=== PATIENT | female | born 1990 | race Caucasian/White ===

== ENCOUNTER 2017-07-28 09:54 | Inpatient (IN) | payer OTHER ==
[2017-07-28] MEDS ORDERED: Promethazine HCl 25 MG/ML VIAL IM PRN ×3 (10:42→17:20)
[2017-07-28] MEDS ORDERED: CEFAZOLIN/Water 2 GM/20 ML SYRINGE SLOW IVP SCH (10:42)
[2017-07-28] MEDS ORDERED: Bicitra 30 ML UDCUP PO SCH (10:42)
[2017-07-28] MEDS ORDERED: Ondansetron HCl/PF 4 MG/2 ML Vial IVP PRN ×4 (10:42→17:20)
[2017-07-28] MEDS: Lactated Ringer's 1,000 ML IV SCH (10:45)
[2017-07-28] MEDS ORDERED: ePHEDrine/0.9% NaCl/PF SYRINGE 50 mg/10 ml ONE ×2 (10:58→14:32)
[2017-07-28] MEDS ORDERED: Oxytocin 10 UNITS/ML VIAL ONE (10:58)
[2017-07-28 11:05] VITALS: BMI 34.3
--- NOTE | 2017-07-28 11:23 | PDOC.LDHP ---
Labor and Delivery H&P Chief complaint: scheduled section HPI: 27yo A1 at 34w5d by 15w sono with mia vs monodi TIUP for repeat CS and RRS. Baby B is growth restricted in 6%ile and Baby A's growth is lagging as well but not IUGR. BPPs have been reassuring but patient is high risk for complications based on maternal hyperthyroidism and CHTN. Good FM. Denies ctx. s/p BMZ x 2 in my office. 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 ) - Physical Exam Vital signs reviewed and normal: yes General: NAD Heart: RRR Lungs: CTAB Abdomen: gravid Extremeties: no edema FHT: category 1 (x2) - OB Labs Blood type: A RH: positive Antibody Screen: negative HIV: negative RPR: negative HEPSAg: negative 1 hour GCT: positive 3 hour GTT: negative GBS: unknown Urine drug screen: negative Rubella: immune - Assessment L&D Assessment: scheduled repeat section - Plan Plan: admit to L&D, to OR for section, informed consent obtained, anesthesia consult for pain management -: 34w5d with twins, unclear if mo-di vs mia based on early sonos and IUGR of Baby B with maternal hyperthyroid and CHTN. Dispo for repeat CS due to continued decrease in growth velocity of baby B, possibility of mo-di placentation, will send to pathology and maternal comorbidities. s/p BMZ x 2
[2017-07-28 11:32] LABS: Hemoglobin 11.4 g/dL (12.0-16.0); Mean Corpuscular HGB CONC 34.1 g/dL (32.0-36.0); Mean Corpuscular Hemoglobin 29.1 pg (27.0-31.0); Mean Corpuscular Volume 85.5 fl (81.0-99.0); Mean Platelet Volume 7.9 fL (7.4-10.4); Platelet Count 214 thou/uL (130-400); RBC Distribution Width 12.7 % (11.5-14.5); Red Blood Cell (RBC) Count 3.91 mill/uL (4.20-5.40); White Blood Cell (WBC) Count 8.5 thou/uL (4.8-10.8)
[2017-07-28 12:08] LABS: ALT (SGPT) 34 U/L (8-55); AST (SGOT) 22 U/L (5-34); Albumin 3.3 g/dL (3.5-5.0); Alkaline Phosphatase 115 U/L (40-150); Anion Gap 13 mmol/L (10-20); BUN (Urea Nitrogen) 8 mg/dL (7.0-18.7); Bilirubin, Total 0.2 mg/dL (0.2-1.2); Calc. Creatinine Clearance 213 mL/min (70-130); Carbon Dioxide 19 mmol/L (22-29); Chloride 110 mmol/L (98-107); Estimated GFR-MDRD Greater than 90; Globulin 2.6 g/dL (2.4-3.5); Glucose 90 mg/dL (70-105); Potassium 3.8 mmol/L (3.5-5.1); Protein, Total 5.9 g/dL (6.0-8.3); Sodium 138 mmol/L (136-145)
[2017-07-28 12:09] LABS: Amphetamine Not Detected (NotDetected); Barbiturates Screen Not Detected (NotDetected); Benzodiazepine Screen Not Detected (NotDetected); Cocaine Metabolite Screen Not Detected (NotDetected); Medtox Control Line Valid? VALID (VALID); Medtox Reader # READER 4; Methadone Not Detected (NotDetected); Methamphetamine Not Detected (NotDetected); Opiate Screen Not Detected (NotDetected); Oxycodone Screen Not Detected (NotDetected); Phencyclidine (PCP) Not Detected (NotDetected); THC/Cannabinoid Screen Not Detected (NotDetected); Tricyclic Screen Not Detected (NotDetected)
[2017-07-28 12:17] LABS: Syphilis Antibody Nonreactive (Nonreactive); Syphilis Antibody Index 0.03 S/CO (<1.00 Non-Reactive)
[2017-07-28 12:18] LABS: HBSAg Index 0.17 S/CO (0-0.99); Hep B Surf Ag Non-Reactive S/CO (NonReactive)
[2017-07-28] MEDS ORDERED: PHENYLEPHRINE-NS 100 MCG/ML 10 ML SYRINGE ONE ×2 (12:30→14:32)
[2017-07-28] MEDS ORDERED: HYDROmorphone 2 MG/ML VIAL SLOW IVP PRN (13:03)
--- NOTE | 2017-07-28 13:19 | PDOC.OPDEL ---
OB Operative/Delivery Note Delivery Dr/Surgeon: Gabriella Assist: Evette Pre-Delivery Diagnosis: scheduled section (mono di twins, 34w5d, IUGR, discordant growth, maternal CHTN and hyperthyroidism, desires sterilization) Procedure/Post Delivery Dx: repeat low transverse CS (and risk reducing salpingectomy) Weeks gestation: 34 Anesthesia: spinal - Findings A Sex: male B Sex: male - Additional Findings/Plan Placenta delivered: spontaneous findings: low transverse hysterotomy without extension, normal uterus, normal tubes, normal ovaries Estimated blood loss: 1000 Post delivery plan: routine recovery
[2017-07-28] MEDS ORDERED: Meperidine HCl/PF 25 MG/ML VIAL ONE ×2 (13:46→14:42)
[2017-07-28] MEDS: Meperidine HCl/PF 25 MG/ML VIAL SLOW IVP PRN ×2 (13:47→14:43)
[2017-07-28] MEDS ORDERED: HYDROmorphone 0.5 MG/0.5 ML SYRINGE SLOW IVP PRN (15:45)
[2017-07-28] MEDS ORDERED: Acetaminophen 325 MG TAB PO PRN (16:36)
[2017-07-28] MEDS ORDERED: diphenhydrAMINE 25 MG CAP PO PRN ×2 (16:36→17:20)
[2017-07-28] MEDS ORDERED: Bisacodyl 10 MG SUPP PR PRN (16:36)
[2017-07-28] MEDS ORDERED: Zolpidem Tartrate 5 MG TAB PO PRN ×2 (16:36→17:20)
[2017-07-28] MEDS ORDERED: HYDROcodone/Acetaminophen 5/325 mg Tablet PO PRN ×2 (16:36)
[2017-07-28] MEDS ORDERED: Lanolin Ointment 7 GM TUBE TOP PRN (16:36)
[2017-07-28] MEDS ORDERED: diphenhydrAMINE 50 MG/ML VIAL IM PRN (17:20)
[2017-07-28] MEDS ORDERED: diphenhydrAMINE 50 MG/ML VIAL IVP PRN (17:20)
[2017-07-28] MEDS ORDERED: Fentanyl 5000 MCG/250 ML CADD IVPB PRN (17:20)
[2017-07-28] MEDS ORDERED: Naloxone HCl 0.4 mg/ml Vial IV PRN (17:20)
[2017-07-28] MEDS ORDERED: Communication Order-Pharmacy FS SCH (17:30)
[2017-07-28] MEDS ORDERED: LR / Pitocin 40 units/1000 ml 1,000 ML ONE (17:42)
[2017-07-28] MEDS ORDERED: fentaNYL Citrate/PF 2,000 MCG in Sodium Chloride 0.9% 60 ML IV PRN (17:45)
[2017-07-28] MEDS: Propylthiouracil 50 MG TAB PO SCH (21:46)
[2017-07-28] MEDS: Docusate Calcium (SURFAK) 240 MG CAP PO SCH (21:46)
[2017-07-29] MEDS: Lactated Ringer's 1,000 ML IV SCH (02:27)
[2017-07-29 06:08] LABS: Hemoglobin 10.3 g/dL (12.0-16.0); Mean Corpuscular HGB CONC 33.6 g/dL (32.0-36.0); Mean Corpuscular Hemoglobin 28.9 pg (27.0-31.0); Mean Platelet Volume 7.3 fL (7.4-10.4); Platelet Count 163 thou/uL (130-400); RBC Distribution Width 12.6 % (11.5-14.5); Red Blood Cell (RBC) Count 3.55 mill/uL (4.20-5.40); White Blood Cell (WBC) Count 8.4 thou/uL (4.8-10.8)
--- NOTE | 2017-07-29 07:26 | PDOC.PP ---
Post Progress Note Post Day #: 1 PO intake tolerated: yes Flatus: yes Ambulation: no Vital Signs (12 hours) Temp Pulse Resp BP Pulse Ox 07/29/17 04:30 98.4 F 79 22 H 141/75 H 97 07/28/17 22:50 98.3 F 77 20 135/70 96 07/28/17 21:45 98.7 F 71 20 121/69 96 07/28/17 20:45 99.0 F 80 20 118/70 98 07/28/17 19:30 98.3 F 78 20 154/75 H 96 Weight Weight 194 lb - Physical Examination General: NAD Cardiovascular: RRR Respiratory: non-labored breathing Abdominal: no distention, appropriately TTP Fundus firm & at: umb Skin: CS incision dry & intact Neurological: no gross focal deficits Psychiatric: normal affect Result Diagrams: 07/29/17 05:53 07/28/17 10:45 Additional Labs: Post Labs Blood Type A POSITIVE 07/28/17 10:45 Hep Bs Antigen Non-Reactive S/CO (NonReactive) 07/28/17 10:45 (1) Twin , monochorionic diamniotic in third trimester Code(s): O30.033 - TWIN , MONOCHORIONIC/DIAMNIOTIC, THIRD TRIMESTER Status: Acute (2) 34 weeks gestation of Code(s): Z3A.34 - 34 WEEKS GESTATION OF Status: Acute (3) Intrauterine growth restriction affecting antepartum care of mother in third trimester Code(s): O36.5930 - MATERN CARE FOR OTH OR SUSP POOR FETL GRTH, THIRD TRI, UNSP Status: Acute Qualifiers: Fetus number: fetus 1 of multiple gestation Qualified Code(s): O36.5931 - Maternal care for other known or suspected poor growth, third trimester, fetus 1 - Assessment/Plan POD 1 from RCS and RRS at 34w due to mo/di TIUP, IUGR VSSAF, BP mild range, has hx of CHTN, no sx PIH. 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
[2017-07-29] MEDS: Ferrous Sulfate 325 MG TAB PO SCH ×2 (08:22→18:01)
[2017-07-29] MEDS: Propylthiouracil 50 MG TAB PO SCH ×2 (08:23→21:46)
[2017-07-29] MEDS: Docusate Calcium (SURFAK) 240 MG CAP PO SCH ×2 (08:23→21:45)
[2017-07-29] MEDS: Naproxen 500 MG TAB PO SCH ×2 (08:23→18:57)
[2017-07-29] MEDS: Prenatal Vitamin 1 TAB PO SCH (08:23)
[2017-07-29] MEDS: Simethicone Chewable 80 MG TAB PO PRN ×2 (08:24→15:59)
[2017-07-29] MEDS ORDERED: FLU VACC QS2017-18 36 mo. & older 0.5 ML SYRINGE IM ONE (09:00)
[2017-07-29 09:17] LABS: Free T4 (Free Thyroxine) 1.83 ng/dL (0.70-1.48); Thyroid Stimulating Hormone 0.0094 uIU/mL (0.35-4.94)
[2017-07-29] MEDS ORDERED: HYDROcodone/Acetaminophen 7.5/325 mg Tablet PO PRN (11:27)
[2017-07-29] MEDS: HYDROcodone/Acetaminophen 7.5/325 mg Tablet PO PRN ×3 (11:34→20:01)
[2017-07-30] MEDS: HYDROcodone/Acetaminophen 7.5/325 mg Tablet PO PRN (06:50)
--- NOTE | 2017-07-30 08:57 | PDOC.EVN ---
Event Note - Event Note Event Note: S: Pt doing well overall but less than adequate pain control. Hives with NSAIDs. Voiding, flatus, nl lochia, breast feeding. O: Vital Signs (24 hours) Temp Pulse Resp BP Pulse Ox 07/30/17 08:38 97.9 F 82 20 144/65 H 07/30/17 08:25 97.9 F 66 18 07/30/17 07:18 97.9 F 66 18 147/72 H 07/30/17 06:30 98.3 F 79 18 07/30/17 01:15 97.8 F 64 14 120/64 07/29/17 19:45 98.3 F 79 18 119/56 L 96 07/29/17 17:00 98.3 F 77 20 143/71 H 07/29/17 15:55 98.4 F 85 20 07/29/17 12:00 98.4 F 85 20 141/81 H 07/29/17 11:35 98.4 F 85 20 Laboratory Last Values WBC 8.4 thou/uL (4.8-10.8) 07/29/17 05:53 RBC 3.55 mill/uL (4.20-5.40) L 07/29/17 05:53 Hgb 10.3 g/dL (12.0-16.0) L 07/29/17 05:53 Hct 30.5 % (36.0-47.0) L 07/29/17 05:53 MCV 86.0 fl (81.0-99.0) 07/29/17 05:53 MCH 28.9 pg (27.0-31.0) 07/29/17 05:53 MCHC 33.6 g/dL (32.0-36.0) 07/29/17 05:53 RDW 12.6 % (11.5-14.5) 07/29/17 05:53 Plt Count 163 thou/uL (130-400) 07/29/17 05:53 MPV 7.3 fL (7.4-10.4) L 07/29/17 05:53 Sodium 138 mmol/L (136-145) 07/28/17 10:45 Potassium 3.8 mmol/L (3.5-5.1) 07/28/17 10:45 Chloride 110 mmol/L (98-107) H 07/28/17 10:45 Carbon Dioxide 19 mmol/L (22-29) L 07/28/17 10:45 Anion Gap 13 mmol/L (10-20) 07/28/17 10:45 BUN 8 mg/dL (7.0-18.7) 07/28/17 10:45 Creatinine 0.55 mg/dL (0.6-1.1) L 07/28/17 10:45 Estimated GFR (MDRD) Greater than 90 07/28/17 10:45 Glucose 90 mg/dL (70-105) 07/28/17 10:45 Calcium 9.0 mg/dL (7.8-10.44) 07/28/17 10:45 Total Bilirubin 0.2 mg/dL (0.2-1.2) 07/28/17 10:45 AST 22 U/L (5-34) 07/28/17 10:45 ALT 34 U/L (8-55) 07/28/17 10:45 Alkaline Phosphatase 115 U/L (40-150) 07/28/17 10:45 Serum Total Protein 5.9 g/dL (6.0-8.3) L 07/28/17 10:45 Albumin 3.3 g/dL (3.5-5.0) L 07/28/17 10:45 Globulin 2.6 g/dL (2.4-3.5) 07/28/17 10:45 Albumin/Globulin Ratio 1.3 g/dL (1.2-2.2) 07/28/17 10:45 Free T4 1.83 ng/dL (0.70-1.48) H 07/29/17 10:45 TSH 3rd Generation 0.0094 uIU/mL (0.35-4.94) L 07/29/17 10:45 Urine Opiates Screen Not Detected (NotDetected) 07/28/17 11:15 Ur Oxycodone Screen Not Detected (NotDetected) 07/28/17 11:15 Urine Methadone Screen Not Detected (NotDetected) 07/28/17 11:15 Ur Propoxyphene Screen Not Detected (NotDetected) 07/28/17 11:15 Ur Barbiturates Screen Not Detected (NotDetected) 07/28/17 11:15 Ur Tricyclics Screen Not Detected (NotDetected) 07/28/17 11:15 Ur Phencyclidine Scrn Not Detected (NotDetected) 07/28/17 11:15 Ur Amphetamines Screen Not Detected (NotDetected) 07/28/17 11:15 U Methamphetamines Scrn Not Detected (NotDetected) 07/28/17 11:15 U Benzodiazepines Scrn Not Detected (NotDetected) 07/28/17 11:15 U Cocaine Metab Screen Not Detected (NotDetected) 07/28/17 11:15 U Cannabinoids Screen Not Detected (NotDetected) 07/28/17 11:15 Drug Screen Comment () 07/28/17 11:15 Syphilis IgG/IgM Ab Nonreactive (Nonreactive) 07/28/17 10:45 Hep Bs Antigen Non-Reactive S/CO (NonReactive) 07/28/17 10:45 Blood Type A POSITIVE 07/28/17 10:45 Antibody Screen NEGATIVE 07/28/17 10:45 Gen. NAD Resp. unlabored . fundus firm below U. Abd. Inc C/D/I with dermabond A/P: POD #2 s/p CD for twins with IUGR c/b hyperthyroid on PTU, doing well. Rouitne PoP care. Adjust [place] dosing. Mild range BPs noted will follow
[2017-07-30] MEDS: Naproxen 500 MG TAB PO SCH ×2 (09:27→17:23)
[2017-07-30] MEDS: Propylthiouracil 50 MG TAB PO SCH ×2 (09:27→20:22)
[2017-07-30] MEDS: Prenatal Vitamin 1 TAB PO SCH (09:27)
[2017-07-30] MEDS: Docusate Calcium (SURFAK) 240 MG CAP PO SCH ×2 (09:27→20:22)
[2017-07-30] MEDS: Ferrous Sulfate 325 MG TAB PO SCH ×2 (10:10→13:17)
[2017-07-30] MEDS: HYDROcodone/Acetaminophen 10/325 mg Tablet PO PRN ×4 (10:24→22:29)
[2017-07-31] MEDS: HYDROcodone/Acetaminophen 10/325 mg Tablet PO PRN ×5 (03:20→19:51)
[2017-07-31] MEDS: Naproxen 500 MG TAB PO SCH ×2 (07:25→18:29)
[2017-07-31] MEDS: Ferrous Sulfate 325 MG TAB PO SCH ×2 (07:26→17:43)
--- NOTE | 2017-07-31 07:36 | PDOC.PP ---
Post Progress Note Post Day #: 3 PO intake tolerated: yes Flatus: yes Ambulation: yes Vital Signs (12 hours) Temp Pulse Resp 07/30/17 20:00 98.3 F 73 20 Weight Weight 194 lb - Physical Examination General: NAD Cardiovascular: no m/r/g, RRR Respiratory: clear to auscultation bilaterally, non-labored breathing Abdominal: + bowel sounds, lochia, appropriately TTP Extremities: negative homans (B) Skin: CS incision dry & intact Neurological: no gross focal deficits Psychiatric: A&Ox3, normal affect Result Diagrams: 07/29/17 05:53 07/28/17 10:45 Additional Labs: Post Labs Blood Type A POSITIVE 07/28/17 10:45 Hep Bs Antigen Non-Reactive S/CO (NonReactive) 07/28/17 10:45 (1) Twin , monochorionic diamniotic in third trimester Code(s): O30.033 - TWIN , MONOCHORIONIC/DIAMNIOTIC, THIRD TRIMESTER Status: Acute - Assessment/Plan continues to improve. htn not requiring meds at this time. plan dc tomorrow
[2017-07-31] MEDS: Propylthiouracil 50 MG TAB PO SCH ×2 (10:18→19:51)
[2017-07-31] MEDS: Docusate Calcium (SURFAK) 240 MG CAP PO SCH ×2 (10:18→19:50)
[2017-07-31] MEDS: Prenatal Vitamin 1 TAB PO SCH (10:18)
[2017-08-01] MEDS: HYDROcodone/Acetaminophen 10/325 mg Tablet PO PRN ×5 (00:54→17:54)
[2017-08-01] MEDS: Prenatal Vitamin 1 TAB PO SCH (08:14)
[2017-08-01] MEDS: Ferrous Sulfate 325 MG TAB PO SCH ×2 (08:14→17:53)
[2017-08-01] MEDS: Docusate Calcium (SURFAK) 240 MG CAP PO SCH (08:15)
[2017-08-01] MEDS: Propylthiouracil 50 MG TAB PO SCH (08:15)
[2017-08-01] MEDS: Naproxen 500 MG TAB PO SCH (08:15)
--- NOTE | 2017-08-01 08:37 | OP ---
DATE OF OPERATION: 07/28/2017 PREOPERATIVE DIAGNOSES: 1. Horry-di twins intrauterine at 34 weeks and 5 days. 3. Intrauterine growth restriction. 4. Discordant growth. 5. Maternal hyperthyroidism. 6. Chronic hypertension. 7. Sterilization. POSTOPERATIVE DIAGNOSES: 1. Horry-di twins intrauterine at 34 weeks and 5 days. 3. Intrauterine growth restriction. 4. Discordant growth. 5. Maternal hyperthyroidism. 6. Chronic hypertension. 7. Sterilization. PROCEDURES PERFORMED: Repeat low transverse section via Pfannenstiel skin incision and risk reducing bilateral salpingectomy. ATTENDING SURGEON: Fani Quiroz M.D. LABORATORY SAMPLER SURGEON: Judy Alas D.O. ANESTHESIA: Spinal. ESTIMATED BLOOD LOSS: 1 liter. INTRAVENOUS FLUIDS: One liter crystalloid. URINE OUTPUT: 100 mL of clear urine. COMPLICATIONS: None. PATHOLOGY: Placenta and bilateral fallopian tube. DRAINS: Ortiz catheter. FINDINGS: Baby A in cephalic presentation with clear amniotic fluid, Apgars of 8 and 9, weighing 4 p ounds, 5 ounces. Baby B in transverse presentation, head on maternal left, delivered in breech posit ion, weighing 4 pounds 9 ounces with Apgars of 6 and 9. Uterus, tubes, and ovaries were normal appea ring. The hysterotomy was without extension and hemostatic upon repair. OPERATIVE TECHNIQUE: The patient was taken to the operating room where spinal anesthesia was obtaine d without difficulty. The patient was prepped and draped in a sterile fashion in the dorsal supine p osition with a leftward tilt. After ensuring adequacy of anesthesia, a timeout was performed and a P fannenstiel skin incision was made and carried down to the underlying subcutaneous tissue with the Rj víctore. This cauterizing bleeders on the way down. The fascia was nicked in the midline with the Bovie and carried laterally with the Mayos. The superior aspect of the fascia was tented with 2 Kochers a nd dissected off the rectus with the Hodges scissors. The inferior aspect of the fascia was tented wit h 2 Kochers and dissected off the rectus with the Mayos down to the pubic symphysis. The rectus were grasped in the midline with 2 Kochers and incised with the Hodges scissors and the peritoneum was ente red into and manually retracted. The Luke O retractor was placed and the lower uterine segment was incised in a transverse fashion and extended with the Lester maneuver. Baby A's head was brought to t he hysterotomy. AROM was performed and delivered atraumatically. A delayed cord clamping was perfor med and the cord was clamped and handed to awaiting teri team. The baby B was then grasped lan ech and brought to the hysterotomy. AROM was performed and was delivered with standard breech maneuv ers without difficulty. A delayed cord clamping was again performed and then the cord was clamped an d infant handed to awaiting teri team. The placenta was then allowed to spontaneously deliver with fu ndal massage and sent for pathology evaluation, it did appear mono-di. The uterus was then cleared o f all clots and debris and the hysterotomy was repaired with a #1 Monocryl in running locking fashion . Hemostasis was noted to be excellent. A moist lap was then placed over the hysterotomy and the ut erus was delivered through the incision and the left fallopian tube was grasped with a Moro clamp. A window was made in the mesosalpinx and cauterizing the arcuate vessels. The distal point of the fallopian tube was then clamped with two hemostats and incised and a free tie of chromic was placed a round this. The medial portion of the fallopian tube was clamped across and then transected and sent for pathology. This was also tied with a free tie of 2-0 chromic. Clamps were removed. Hemostasis was noted to be excellent. The same procedure was performed on the contralateral side and the uteru s was then gently placed back into the abdomen after the posterior cul-de-sac was lapped out. The hy sterotomy was again examined and noted to be hemostatic and the fallopian tube sites were also again examined and noted to be hemostatic. Irrigation of the pelvis and pericolic gutters was performed. The rectus muscles were then examined and cauterized of any bleeders and hemostatic. The fascia was reapproximated with an 0 PDS x2 sutures with excellent reapproximation. The subcutaneous tissue was irrigated and cauterized of any bleeders and reapproximated with a 2-0 plain gut in a running fashion . The skin was closed with 4-0 Monocryl in a subcuticular fashion and Dermabond was applied. The pa tient tolerated the procedure well. Sponge, lap, and needle counts were correct x2. The patient was taken to recovery room in stable condition. Patient received Ancef 2 grams prior to the procedure.
[2017-08-01 10:36] VITALS: TEMP 97.8
--- NOTE | 2017-08-01 10:38 | PDOC.PP ---
Post Progress Note Post Day #: 4 Subjective: pain controlled on norco q 4h and aleve bid. no WOODRUFF vision change RUQ pain PO intake tolerated: yes Flatus: yes Ambulation: yes Vital Signs (12 hours) Temp Pulse Resp BP 08/01/17 08:05 97.8 F 61 20 162/83 H Weight Weight 194 lb - Physical Examination General: NAD Cardiovascular: RRR Respiratory: clear to auscultation bilaterally, non-labored breathing Abdominal: no distention, appropriately TTP Fundus firm & at: umb Extremities: negative homans (B) (tr RABIA edema bilaterally) Skin: CS incision dry & intact Neurological: no gross focal deficits Psychiatric: normal affect Result Diagrams: 07/29/17 05:53 07/28/17 10:45 Additional Labs: Post Labs Blood Type A POSITIVE 07/28/17 10:45 Hep Bs Antigen Non-Reactive S/CO (NonReactive) 07/28/17 10:45 (1) Twin , monochorionic diamniotic in third trimester Code(s): O30.033 - TWIN , MONOCHORIONIC/DIAMNIOTIC, THIRD TRIMESTER Status: Acute (2) 34 weeks gestation of Code(s): Z3A.34 - 34 WEEKS GESTATION OF Status: Acute (3) Intrauterine growth restriction affecting antepartum care of mother in third trimester Code(s): O36.5930 - MATERN CARE FOR OTH OR SUSP POOR FETL GRTH, THIRD TRI, UNSP Status: Acute Qualifiers: Fetus number: fetus 1 of multiple gestation Qualified Code(s): O36.5931 - Maternal care for other known or suspected poor growth, third trimester, fetus 1 - Assessment/Plan BP elevated today, will start on procardia xl 30 daily, recheck pih labs, no sx PIH. Met postop milestones, pain controlled bu taking 2 norco every 4h. Adv pt to decr use of narcotic. Incr naproxyen to tid. Babies in NICU doing well. Cont postop care, poss DC today if BP improved and no e/o PIH.
[2017-08-01] MEDS: Simethicone Chewable 80 MG TAB PO PRN (13:02)
[2017-08-01] MEDS ORDERED: NIFEdipine XL 30 MG TAB PO SCH (13:08)
[2017-08-01 13:28] LABS: #Eosinphils 0.1 thou/uL (0.0-0.7); #Lymphocytes 1.1 thou/uL (1.20-3.40); #Monocytes 0.4 thou/uL (0.11-0.59); #Neutrophils 3.6 thou/uL (1.40-6.50); %Basophils 0.2 % (0.0-1.0); %Eosinophils 2.6 % (0.0-10.0); %Lymphocytes 21.4 % (21.0-51.0); %Neutrophils 68.9 % (42.0-75.0); Hemoglobin 10.3 g/dL (12.0-16.0); Mean Corpuscular HGB CONC 33.3 g/dL (32.0-36.0); Mean Corpuscular Hemoglobin 29.2 pg (27.0-31.0); Mean Corpuscular Volume 87.7 fl (81.0-99.0); Mean Platelet Volume 6.7 fL (7.4-10.4); Platelet Count 244 thou/uL (130-400); RBC Distribution Width 12.4 % (11.5-14.5); Red Blood Cell (RBC) Count 3.53 mill/uL (4.20-5.40); White Blood Cell (WBC) Count 5.3 thou/uL (4.8-10.8)
[2017-08-01 13:48] LABS: ALT (SGPT) 21 U/L (8-55); AST (SGOT) 15 U/L (5-34); Albumin 2.9 g/dL (3.5-5.0); Alkaline Phosphatase 95 U/L (40-150); Anion Gap 12 mmol/L (10-20); BUN (Urea Nitrogen) 16 mg/dL (7.0-18.7); Bilirubin, Total 0.2 mg/dL (0.2-1.2); Calc. Creatinine Clearance 202 mL/min (70-130); Calcium 9.3 mg/dL (7.8-10.44); Carbon Dioxide 27 mmol/L (22-29); Chloride 103 mmol/L (98-107); Estimated GFR-MDRD Greater than 90; Globulin 2.8 g/dL (2.4-3.5); Glucose 86 mg/dL (70-105); Potassium 4.5 mmol/L (3.5-5.1); Protein, Total 5.7 g/dL (6.0-8.3); Sodium 137 mmol/L (136-145)
[2017-08-01] MEDS ORDERED: Naproxen 500 MG TAB PO SCH (15:00)
[2017-08-01] MEDS ORDERED: Propylthiouracil 50 MG TAB PO SCH (15:00)
[2017-08-01 20:09] VITALS: BP 154/74
[2017-08-02] MEDS ORDERED: NIFEdipine XL 30 MG TAB PO SCH (09:00)
== END 2017-08-01 20:10 | disposition home or self-care (01) | DRG 765 ==
LOC: L&D 09:54 → EEVIPCON 09:54 → 3SW 15:48
PROVIDERS: ADMIT Student in an Organized Health Care Education/Training Program; ATTEND Student in an Organized Health Care Education/Training Program
PROC: 10D00Z1 Extraction of Products of Conception, Low, Open Approach (ICD-10-PCS; principal; 2017-07-28)
PROC: 0UB70ZZ Excision of Bilateral Fallopian Tubes, Open Approach (ICD-10-PCS; 2017-07-28)
DX: O36.5932 Maternal care for other known or suspected poor fetal growth, third trimester, fetus 2 (principal); O10.92 Unspecified pre-existing hypertension complicating childbirth; Z37.2 Twins, both liveborn; O30.033 Twin pregnancy, monochorionic/diamniotic, third trimester; O99.284 Endocrine, nutritional and metabolic diseases complicating childbirth; Z3A.34 34 weeks gestation of pregnancy; E05.90 Thyrotoxicosis, unspecified without thyrotoxic crisis or storm; Z30.2 Encounter for sterilization; Z80.3 Family history of malignant neoplasm of breast; Z80.41 Family history of malignant neoplasm of ovary
CPT/HCPCS: 36415; 51702; 80053; 80306; 84439; 84443; 85025; 85027; 86780; 86850; 86900; 86901; 87340; 88302; 88307; 90471; 90682; G0008; J1170; J2175; J2590; J3010; J7050; Q2036

== ENCOUNTER 2017-08-06 06:08 | Inpatient (IN) | payer OTHER ==
[2017-08-06] MEDS ORDERED: diphenhydrAMINE 50 MG/ML VIAL ONE (06:50)
[2017-08-06] MEDS ORDERED: Metoclopramide HCl 10 MG/2 ML VIAL ONE ×5 (06:50→18:49)
[2017-08-06] MEDS ORDERED: diphenhydrAMINE 50 MG CAP ONE (07:03)
[2017-08-06] MEDS ORDERED: Acetaminophen 500 MG TAB ONE (08:24)
[2017-08-06] MEDS ORDERED: Magnesium Sulfate 2 GM/100 ML BAG ONE (08:25)
[2017-08-06 08:55] LABS: #Lymphocytes 1.1 thou/uL (1.20-3.40); #Monocytes 0.3 thou/uL (0.11-0.59); #Neutrophils 7.2 thou/uL (1.40-6.50); %Basophils 0.3 % (0.0-1.0); %Eosinophils 0.1 % (0.0-10.0); %Lymphocytes 12.8 % (21.0-51.0); %Monocytes 3.2 % (0.0-10.0); %Neutrophils 83.6 % (42.0-75.0); Hemoglobin 11.5 g/dL (12.0-16.0); Mean Corpuscular HGB CONC 33.4 g/dL (32.0-36.0); Mean Corpuscular Hemoglobin 28.2 pg (27.0-31.0); Mean Corpuscular Volume 84.4 fl (81.0-99.0); Mean Platelet Volume 7.2 fL (7.4-10.4); Platelet Count 307 thou/uL (130-400); RBC Distribution Width 11.8 % (11.5-14.5); Red Blood Cell (RBC) Count 4.09 mill/uL (4.20-5.40); White Blood Cell (WBC) Count 8.6 thou/uL (4.8-10.8)
[2017-08-06 09:06] LABS: Anion Gap 13 mmol/L (10-20); BUN (Urea Nitrogen) 9 mg/dL (7.0-18.7); Calc. Creatinine Clearance 0 mL/min (70-130); Calcium 8.7 mg/dL (7.8-10.44); Carbon Dioxide 22 mmol/L (22-29); Chloride 109 mmol/L (98-107); Estimated GFR-MDRD Greater than 90; Glucose 103 mg/dL (70-105); Potassium 3.7 mmol/L (3.5-5.1); Sodium 140 mmol/L (136-145)
--- NOTE | 2017-08-06 09:06 | CT ---
PRELIMINARY REPORT/[facility]/EMERGENCY AFTER HOURS PROCEDURE: EXAM: CT Head Without Intravenous Contrast CLINICAL HISTORY: 27 years old, female; Pain; Headache; Patient HX: Patient presents C/O diffuse headache x 3 days. Rony abrams admits to HX of migraines, states this feels similar in quality but worse. Admits to phonophobi a and photophobia, denies head trauma, anticoagulant use. Admits to recent delivery of twins, no know n HX of pre-ecclampsia. Denies fever, neck pain or stiffness, sore throat, Uri symptoms. TECHNIQUE: Axial computed tomography images of the head/brain without intravenous contrast. COMPARISON: No relevant prior studies available. FINDINGS: Normal brain morphology. Brown-white matter differentiation is preserved. No intracranial hemorrhage. No mass, mass effect or midline shift. No extra-axial fluid collection. No acute hydrocephalus. Cortical sulci and basal cisterns are preserved without effacement. Crowding at the level foramen magnum. Orbits are unremarkable. Paranasal sinuses are clear. Mastoid air cells are clear. No acute fracture. Extra calvarial soft tissues unremarkable. IMPRESSION: 1. No acute intracranial abnormality. 2. Crowding at the level of the foramen magnum. Differential includes cerebellar tonsillar ectopia ve rsus Chiari 1 malformation. Follow-up or further evaluation for this finding at local radiologist's d iscretion. Thank you for allowing us to participate in the care of your patient. Dictated and Authenticated by: Celestine Pastrana MD 08/06/2017 7:14 AM Central Time ([place] & [place]) FINAL REPORT EMERGENT AFTER HOURS CT OF THE BRAIN WITHOUT CONTRAST: FINDINGS/IMPRESSION: I agree with the findings and impression given in the preliminary report per [facility] physician. No evidence of acute intracranial abnormality. POS: [facility]
[2017-08-06] MEDS ORDERED: Dexamethasone 10 MG/ML VIAL ONE (10:07)
[2017-08-06] MEDS ORDERED: Labetalol HCl 100 MG/20 ML VIAL ONE (10:07)
[2017-08-06 10:26] LABS: ALT (SGPT) 18 U/L (8-55); AST (SGOT) 11 U/L (5-34); Albumin 3.2 g/dL (3.5-5.0); Alkaline Phosphatase 94 U/L (40-150); Bilirubin, Direct 0.1 mg/dL (0.1-0.3); Bilirubin, Total 0.3 mg/dL (0.2-1.2); Protein, Total 5.9 g/dL (6.0-8.3)
[2017-08-06 10:46] LABS: Bilirubin Negative (Negative); Blood, Urine Large (Negative); Clarity CLEAR (Clear); Glucose, Urine (Dipstick) Negative (Negative); Leukocyte Negative (Negative); Nitrite Negative (Negative); Protein, Urine (Dipstick) 100 mg/dL (Neg-Trace); Specific Gravity, Urine 1.013 (1.002-1.036); pH, Urine 6.5 (5.0-9.0)
[2017-08-06 10:48] LABS: Bacteria/HPF None Seen HPF (None Seen); Hyaline Casts/LPF 0-3 HYALINE CAST LPF (0-3 Hyaline); Pathc Cast-AUWi Flag 0.13 (0-2.49); Squamous Epithelial 0-3 HPF (0-3); WBC/HPF 0-3 HPF (0-3)
[2017-08-06] MEDS ORDERED: Valproate Sodium 1,000 MG in Sodium Chloride 0.9% 100 ML IVPB SCH (11:15)
[2017-08-06] MEDS ORDERED: Calcium Gluc 4.6 MEQ/10 ML (100 MG/ML) SLOW IVP PRN (11:48)
[2017-08-06] MEDS ORDERED: NIFEdipine XL 30 MG TAB PO SCH (12:15)
[2017-08-06] MEDS: Magnesium Sulfate 20 GM/WATER 500 ML BAG IVPB SCH ×3 (13:00→21:16)
[2017-08-06 13:57] LABS: Bilirubin Negative (Negative); Blood, Urine Trace (Negative); Clarity CLEAR (Clear); Glucose, Urine (Dipstick) Negative (Negative); Leukocyte Negative (Negative); Nitrite Negative (Negative); Protein, Urine (Dipstick) 300 mg/dL (Neg-Trace); Specific Gravity, Urine 1.015 (1.002-1.036); pH, Urine 6.5 (5.0-9.0)
[2017-08-06 13:59] LABS: Bacteria/HPF None Seen HPF (None Seen); Hyaline Casts/LPF 0-3 HYALINE CAST LPF (0-3 Hyaline); Squamous Epithelial None Seen HPF (0-3); WBC/HPF 0-3 HPF (0-3)
[2017-08-06 14:23] LABS: Creatinine, Urine 37.6 mg/dL (47-110)
[2017-08-06] MEDS ORDERED: Propylthiouracil 50 MG TAB PO SCH (15:00)
[2017-08-06] MEDS: HYDROcodone/Acetaminophen 5/325 mg Tablet PO PRN ×2 (15:05→16:51)
[2017-08-06] MEDS: Metoclopramide HCl 10 MG/2 ML VIAL IVP PRN ×3 (16:52→19:10)
[2017-08-06] MEDS: diphenhydrAMINE 50 MG/ML VIAL IVP PRN ×2 (16:52→18:04)
--- NOTE | 2017-08-06 18:26 | PDOC.EVN ---
Event Note - Event Note Event Note: Called By Rn for temp of 101, although pt says her WOODRUFF has partially resolved REpeat CBC, CMP ordered as well as Influenza screen, blood cultures, and lactic acid
[2017-08-06 18:57] LABS: #Lymphocytes 1.3 thou/uL (1.20-3.40); #Monocytes 0.3 thou/uL (0.11-0.59); #Neutrophils 5.4 thou/uL (1.40-6.50); %Basophils 0.2 % (0.0-1.0); %Lymphocytes 18.4 % (21.0-51.0); %Monocytes 4.5 % (0.0-10.0); Hemoglobin 11.3 g/dL (12.0-16.0); Mean Corpuscular HGB CONC 32.3 g/dL (32.0-36.0); Mean Corpuscular Hemoglobin 27.4 pg (27.0-31.0); Mean Corpuscular Volume 84.6 fl (81.0-99.0); Mean Platelet Volume 6.9 fL (7.4-10.4); Platelet Count 323 thou/uL (130-400); RBC Distribution Width 11.7 % (11.5-14.5); Red Blood Cell (RBC) Count 4.11 mill/uL (4.20-5.40)
[2017-08-06 19:24] LABS: ALT (SGPT) 15 U/L (8-55); AST (SGOT) 11 U/L (5-34); Albumin 3.1 g/dL (3.5-5.0); Alkaline Phosphatase 89 U/L (40-150); Anion Gap 12 mmol/L (10-20); BUN (Urea Nitrogen) 10 mg/dL (7.0-18.7); Bilirubin, Total 0.2 mg/dL (0.2-1.2); Calc. Creatinine Clearance 0 mL/min (70-130); Carbon Dioxide 22 mmol/L (22-29); Chloride 107 mmol/L (98-107); Estimated GFR-MDRD Greater than 90; Globulin 2.5 g/dL (2.4-3.5); Glucose 128 mg/dL (70-105); Potassium 3.7 mmol/L (3.5-5.1); Protein, Total 5.6 g/dL (6.0-8.3); Sodium 137 mmol/L (136-145)
[2017-08-06] MEDS ORDERED: Fioricet 325/50/40 mg Tablet PO SCH (20:45)
[2017-08-06] MEDS ORDERED: Magnesium Sulfate 20 gm/500 ml 20 GM/500 ML BAG ONE (21:05)
[2017-08-06] MEDS: Propylthiouracil 50 MG TAB PO SCH (21:21)
[2017-08-06 21:28] VITALS: BMI 26.6
[2017-08-07] MEDS ORDERED: Magnesium Sulfate 20 gm/500 ml 20 GM/500 ML BAG ONE (07:23)
[2017-08-07] MEDS ORDERED: Fioricet 325/50/40 mg Tablet PO PRN (07:49)
--- NOTE | 2017-08-07 08:27 | PDOC.EVN ---
Event Note - Event Note Event Note: S: Pt states WOODRUFF completely resolved with fioricet but now it has returned. She still denies cough, myalgias, other complaints O: 130-150/60-70's AVSS Gen. NAD. more comfortable than yesterday Resp unlabored Laboratory Last Values WBC 7.0 thou/uL (4.8-10.8) 08/06/17 18:43 RBC 4.11 mill/uL (4.20-5.40) L 08/06/17 18:43 Hgb 11.3 g/dL (12.0-16.0) L 08/06/17 18:43 Hct 34.8 % (36.0-47.0) L 08/06/17 18:43 MCV 84.6 fl (81.0-99.0) 08/06/17 18:43 MCH 27.4 pg (27.0-31.0) 08/06/17 18:43 MCHC 32.3 g/dL (32.0-36.0) 08/06/17 18:43 RDW 11.7 % (11.5-14.5) 08/06/17 18:43 Plt Count 323 thou/uL (130-400) 08/06/17 18:43 MPV 6.9 fL (7.4-10.4) L 08/06/17 18:43 Neutrophils % 77.0 % (42.0-75.0) H 08/06/17 18:43 Lymphocytes % 18.4 % (21.0-51.0) L 08/06/17 18:43 Monocytes % 4.5 % (0.0-10.0) 08/06/17 18:43 Eosinophils % 0.0 % (0.0-10.0) 08/06/17 18:43 Basophils % 0.2 % (0.0-1.0) 08/06/17 18:43 Neutrophils # 5.4 thou/uL (1.40-6.50) 08/06/17 18:43 Lymphocytes # 1.3 thou/uL (1.20-3.40) 08/06/17 18:43 Monocytes # 0.3 thou/uL (0.11-0.59) 08/06/17 18:43 Eosinophils # 0.0 thou/uL (0.0-0.7) 08/06/17 18:43 Basophils # 0.0 thou/uL (0.0-0.2) 08/06/17 18:43 Sodium 137 mmol/L (136-145) 08/06/17 18:43 Potassium 3.7 mmol/L (3.5-5.1) 08/06/17 18:43 Chloride 107 mmol/L (98-107) 08/06/17 18:43 Carbon Dioxide 22 mmol/L (22-29) 08/06/17 18:43 Anion Gap 12 mmol/L (10-20) 08/06/17 18:43 BUN 10 mg/dL (7.0-18.7) 08/06/17 18:43 Creatinine 0.55 mg/dL (0.6-1.1) L 08/06/17 18:43 Estimated GFR (MDRD) Greater than 90 08/06/17 18:43 Glucose 128 mg/dL (70-105) H 08/06/17 18:43 Lactic Acid 0.7 mmol/L (0.5-2.2) 08/06/17 18:43 Calcium 8.0 mg/dL (7.8-10.44) 08/06/17 18:43 Total Bilirubin 0.2 mg/dL (0.2-1.2) 08/06/17 18:43 Direct Bilirubin 0.1 mg/dL (0.1-0.3) 08/06/17 08:37 AST 11 U/L (5-34) 08/06/17 18:43 ALT 15 U/L (8-55) 08/06/17 18:43 Alkaline Phosphatase 89 U/L (40-150) 08/06/17 18:43 Serum Total Protein 5.6 g/dL (6.0-8.3) L 08/06/17 18:43 Albumin 3.1 g/dL (3.5-5.0) L 08/06/17 18:43 Globulin 2.5 g/dL (2.4-3.5) 08/06/17 18:43 Albumin/Globulin Ratio 1.2 g/dL (1.2-2.2) 08/06/17 18:43 TSH 3rd Generation 0.0027 uIU/mL (0.35-4.94) L 08/06/17 08:37 Urine Color YELLOW (Yellow) 08/06/17 13:05 Urine Clarity CLEAR (Clear) 08/06/17 13:05 Urine pH 6.5 (5.0-9.0) 08/06/17 13:05 Ur Specific [place] 1.015 (1.002-1.036) 08/06/17 13:05 Urine Protein 300 mg/dL (Neg-Trace) H 08/06/17 13:05 Urine Glucose (UA) Negative mg/dL (Negative) 08/06/17 13:05 Urine Ketones Trace mg/dL (Negative) H 08/06/17 13:05 Urine Blood Trace (Negative) H 08/06/17 13:05 Urine Nitrite Negative (Negative) 08/06/17 13:05 Urine Bilirubin Negative (Negative) 08/06/17 13:05 Urine Urobilinogen 1.0 mg/dL (0.2-1.0) 08/06/17 13:05 Ur Leukocyte Esterase Negative (Negative) 08/06/17 13:05 Urine RBC 4-6 HPF (0-3) 08/06/17 13:05 Urine WBC 0-3 HPF (0-3) 08/06/17 13:05 Ur Squamous Epith Cells None Seen HPF (0-3) 08/06/17 13:05 Urine Bacteria None Seen HPF (None Seen) 08/06/17 13:05 Hyaline Casts 0-3 HYALINE CAST LPF (0-3 Hyaline) 08/06/17 13:05 U Random Total Protein 311 mg/dL 08/06/17 13:05 Urine Creatinine 37.60 mg/dL (47-110) L 08/06/17 13:05 A/P: * s/p CD 07/28/17 * readmission for severe range BPs and severe WOODRUFF * magnesium * fioricet for WOODRUFF's although if they cont to be severe may consider consulting Neuro. No acute changes noted on CT but possible Chiari Malformation Type I noted, please see report * Procardia XL 30mg daily ordered - pt was not taking prior to admission because she said her insurnace did not cover * Hyperthyroidism * pt was only taking PTU 50mg qd although tid was prescribed according to her DC summary. SHe was placed on 50mg TID. Will need f/u labs in 1-2 months * Twins in NICU * self limited episode of fever, no leukocytosis, normal lactic acid, negative flu PCR. Blood cultures pending * Social. May consider SW consult. Pt has been staying in [facility] even though she [place] in [facility], unable to get/take meds raises concern for resources
[2017-08-07] MEDS: Propylthiouracil 50 MG TAB PO SCH ×3 (09:00→21:37)
[2017-08-07] MEDS: NIFEdipine XL 30 MG TAB PO SCH (10:00)
[2017-08-07] MEDS: Mag-Al 1200 mg/1200 mg/30 ML UDCUP PO PRN ×2 (11:56→16:40)
[2017-08-07] MEDS ORDERED: Magnesium Sulfate 20 gm/500 ml 20 GM/500 ML BAG IVPB SCH (13:00)
[2017-08-07] MEDS: Labetalol HCl 100 MG/20 ML VIAL SLOW IVP PRN ×2 (13:20→17:13)
--- NOTE | 2017-08-07 15:50 | HP ---
DATE OF SERVICE: 08/06/2017 CHIEF COMPLAINT: Postoperative on 07/28/2017 with severe headache. HISTORY OF PRESENT ILLNESS: At the time of presentation in the emergency department, Ms. Nicki Ann is a 27-year-old white female who is status post delivery of twins for IUGR on 07/28/2017. The patient sees Dr. Quiroz for care. Apparently, the patient has a history of migraines prior to , but they were not a problem during the . The patient also states that she did not have any problems with her blood pressure during the , but did have some problems after the delivery. She states that regarding the headache, she took some Excedrin Migraine at approximately 0300, the day of presentation with no relief from the headache. The patient states that she has blurry vision as well. Headache and blurry vision has been going on for the last 3 days. She denies any gestational diabetes or any other -related complications. The patient denies any fever or chills. She reports some sweats however. She denies any cardiovascular or respiratory complaints. She denies any right upper quadrant pain or vomiting. She is and has normal lochia. Of note, she has been staying in the [facility] to be in close proximity to her twins being born at 34 weeks and still in the NICU. PAST MEDICAL HISTORY: Migraines, hyperthyroidism, depression. PAST SURGICAL HISTORY: section x3. OBSTETRIC HISTORY: The patient is a 5, para 3, AB 2 with living now 4. MEDICATIONS: 1. PTU 50 mg daily. 2. Zoloft. ALLERGIES: 1. IBUPROFEN. 2. TRAMADOL. 3. MORPHINE, all cause hives. Of note, patient is able to tolerate Pelham without difficulty. PHYSICAL EXAMINATION: VITAL SIGNS: In the emergency department, blood pressure has been 140s-180s/60s -90s, pulse 77, respiratory rate 16, temperature 99.7. GENERAL: Nontoxic appearing female in moderate amount of distress with her face covered by a shirt and a light cloth in the room. HEENT: Normocephalic, atraumatic. LUNGS: Clear to auscultation. CARDIOVASCULAR: Regular rate and rhythm. ABDOMEN: Soft, nontender, nondistended, no rebound, no guarding. Incision from the is healing well with Dermabond. No erythema or areas of fluctuance. LABORATORY DATA AND STUDIES: White blood cell count 8.6, hematocrit 34.5, platelets 305. Sodium and potassium are 140 and 3.7, creatinine 0.52. AST and ALT are 11 and 8 respectively. Urinalysis is contaminated by blood and will be repeated. ASSESSMENT AND PLAN: 1. Postop section on 07/28/2017 for intrauterine growth restriction twins at 34 weeks. 2. Severe headache and hypertension. Given the patient's history of twins of intrauterine growth restriction, suspect preeclampsia. The patient's discharge summary from her admission was reviewed and apparently she was discharged home on Procardia-XL 30 mg daily. The patient has not been taking this, because she says her insurance did not cover it. We will repeat the patient's urinalysis with a catheter specimen to do a protein creatinine ratio, but given her severe range pressures and headache, we will admit for magnesium and management of the headache. We will also start the patient on her Procardia -XL 30 mg p.o. daily. Of note, a CT scan of the head was ordered by the emergency room physician with no evidence of acute intracranial abnormality, but there was some crowding at the level of the foramen magnum with differential diagnoses including cerebellar tonsillar ectopia versus Chiari malformation. Follow up for further evaluation was suggested. We will order a neurology consultation if indicated 3. Hyperthyroidism, upon reviewing the patient's discharge summary, she was actually supposed to be taking the 50 mcg of PTU 3 times a day and has only been taking it one time a day. We will place the patient on the appropriate dose. MTDD
[2017-08-07] MEDS ORDERED: Sodium Chloride 0.9% 20 ML ONE ×2 (21:28→22:20)
[2017-08-07] MEDS: Famotidine 20 MG TAB PO SCH (21:36)
[2017-08-07] MEDS: hydrALAZINE 20 MG/ML VIAL SLOW IVP PRN ×2 (21:37→22:24)
[2017-08-07] MEDS: HYDROcodone/Acetaminophen 10/325 mg Tablet PO PRN (21:49)
[2017-08-07] MEDS: Zolpidem Tartrate 5 MG TAB PO PRN (23:23)
[2017-08-08] MEDS: HYDROcodone/Acetaminophen 10/325 mg Tablet PO PRN ×3 (03:20→12:10)
[2017-08-08] MEDS: Famotidine 20 MG TAB PO SCH ×2 (08:08→21:09)
[2017-08-08] MEDS: NIFEdipine XL 30 MG TAB PO SCH (08:09)
[2017-08-08] MEDS: Propylthiouracil 50 MG TAB PO SCH ×3 (08:10→21:10)
[2017-08-08] MEDS ORDERED: Amlodipine 5 MG TAB PO SCH (10:30)
--- NOTE | 2017-08-08 11:21 | PDOC.PP ---
Post Progress Note Post Day #: 11 Subjective: continues to have WOODRUFF, slightly improved since last night, last night couldn't sleep until 3am due to WOODRUFF and BP was elevated. Given IV labetalol and hydralazine last night and po procardia xl this am. PO intake tolerated: yes Flatus: yes Ambulation: yes Vital Signs (12 hours) Temp Pulse Resp BP BP BP BP 08/08/17 10:30 56 L 154/68 H 08/08/17 08:09 52 L 153/70 H 08/08/17 08:00 98.7 F 52 L 18 153/70 H 08/08/17 03:15 98.7 F 60 16 158/68 H 08/08/17 01:10 60 152/60 H 08/07/17 23:34 98.0 F 52 L 16 Weight Weight 159 lb 15.831 oz - Physical Examination General: NAD Cardiovascular: RRR Respiratory: clear to auscultation bilaterally, non-labored breathing Abdominal: no distention, appropriately TTP Extremities: negative homans (B) Skin: CS incision dry & intact Neurological: no gross focal deficits Psychiatric: normal affect Result Diagrams: 08/06/17 18:43 08/06/17 18:43 (1) Preeclampsia in period Code(s): O14.95 - UNSPECIFIED PRE-ECLAMPSIA, COMPLICATING THE PUERPERIUM Status: Acute - Assessment/Plan POD 11 readmit with PEC. s/p Mag course. Now with severely elevated BPs and WOODRUFF. Will change procardia to norvasc as pt could not afford procardia on DC and that is why she did not take meds. Will continue monitoring sx, treating WOODRUFF and ensuring BP comes down. Instructed patient that she will need PTU three times daily on DC and feel her undertreated hyperthyroidism is also contributing to her sx and BPs. Cont inpatient care.
[2017-08-08] MEDS: HYDROcodone/Acetaminophen 5/325 mg Tablet PO PRN (16:09)
[2017-08-08] MEDS: Zolpidem Tartrate 5 MG TAB PO PRN (21:15)
--- NOTE | 2017-08-09 08:21 | PDOC.PP ---
Post Progress Note Post Day #: 12 Subjective: WOODRUFF resolved, postop pain minimal. Having pain around IV site. PO intake tolerated: yes Flatus: yes Ambulation: yes Vital Signs (12 hours) Temp Pulse Resp BP 08/09/17 01:30 98.4 F 65 18 146/68 H 08/08/17 21:00 98.3 F 65 18 146/75 H Weight Weight 159 lb 15.831 oz - Physical Examination General: NAD Cardiovascular: RRR Respiratory: non-labored breathing Abdominal: no distention, appropriately TTP Extremities: negative homans (B) Skin: CS incision dry & intact Neurological: no gross focal deficits Psychiatric: normal affect Result Diagrams: 08/06/17 18:43 08/06/17 18:43 (1) Preeclampsia in period Code(s): O14.95 - UNSPECIFIED PRE-ECLAMPSIA, COMPLICATING THE PUERPERIUM Status: Acute - Assessment/Plan BP improved on norvasc 5mg. WOODRUFF improved s/p Mag for PP PEC. If BP remains mild and pt asx will plan DC later today. Will ensure that pt will be able to apple picker meds prior to DC. Has fu sched 08/11. IV site infiltrated, now indurated erythematous and warm, will start on keflex.
[2017-08-09 09:00] VITALS: TEMP 98.9
[2017-08-09] MEDS ORDERED: Amlodipine 5 MG TAB PO SCH (09:00)
[2017-08-09] MEDS: Famotidine 20 MG TAB PO SCH (09:08)
[2017-08-09] MEDS: Propylthiouracil 50 MG TAB PO SCH (09:09)
[2017-08-09] MEDS: HYDROcodone/Acetaminophen 5/325 mg Tablet PO PRN (11:22)
[2017-08-09] MEDS ORDERED: Cephalexin 250 MG CAP PO SCH (12:00)
[2017-08-09 12:05] VITALS: BP 154/75
== END 2017-08-09 13:15 | disposition home or self-care (01) | DRG 776 ==
LOC: ERS 06:08 → L&D 11:52 → 3SW 08-07 20:24
PROVIDERS: ADMIT Obstetrics & Gynecology Obstetrics; ATTEND Obstetrics & Gynecology Obstetrics
DX: O14.95 Unspecified pre-eclampsia, complicating the puerperium (principal); E05.90 Thyrotoxicosis, unspecified without thyrotoxic crisis or storm; O99.285 Endocrine, nutritional and metabolic diseases complicating the puerperium; Z88.6 Allergy status to analgesic agent; Z88.5 Allergy status to narcotic agent; F17.211 Nicotine dependence, cigarettes, in remission
CPT/HCPCS: 36415; 70450; 80048; 80076; 81003; 81015; 82570; 83605; 84156; 84443; 85025; 87040; 87086; 87631; 96361; 96365; 96367; 96375; A4216; J0360; J1100; J1200; J2765; J3475; J7050

== ENCOUNTER 2017-08-31 08:20 | Inpatient (IN) | payer OTHER ==
[2017-08-30 14:01] VITALS: BMI 28.3
[2017-08-31] MEDS ORDERED: Midazolam HCl 2 mg/2 ml Vial ONE ×2 (09:29)
[2017-08-31] MEDS ORDERED: Fentanyl 100 MCG/2 ML VIAL ONE ×3 (09:29→13:17)
[2017-08-31] MEDS ORDERED: Lidocaine 1% w/Epinephrine 1:200K 30 ML VIAL ONE (09:35)
[2017-08-31 09:36] LABS: BHCG - Serum Negative (NEGATIVE); Pregs Control Background? CLEAR/WHITE (CLR/WHITE); Pregs Control Bar Appear? YES (CONTROL BAR)
[2017-08-31] MEDS ORDERED: HYDROcodone/Acetaminophen 5/325 mg Tablet PO PRN (12:20)
[2017-08-31] MEDS ORDERED: Ondansetron HCl/PF 4 MG/2 ML Vial IVP PRN (12:20)
[2017-08-31] MEDS ORDERED: HYDROmorphone 0.5 MG/0.5 ML SYRINGE ONE ×2 (12:39→12:51)
[2017-08-31] MEDS ORDERED: Promethazine HCl 25 MG/ML VIAL ONE (13:17)
[2017-08-31] MEDS: Sodium Chloride 0.45% 1,000 ML IV SCH ×2 (14:16→21:46)
[2017-08-31] MEDS: Calcium Carbonate 500 MG TAB PO SCH ×2 (14:20→21:36)
[2017-08-31] MEDS: HYDROcodone/Acetaminophen 5/325 mg Tablet PO PRN ×3 (14:24→21:43)
[2017-08-31] MEDS ORDERED: Ondansetron HCl/PF 4 MG/2 ML Vial ONE (15:53)
[2017-08-31] MEDS ORDERED: PHENYLEPHRINE-NS 100 MCG/ML 10 ML SYRINGE ONE (15:53)
[2017-08-31] MEDS ORDERED: Labetalol 100 MG/20 ML MDV ONE (15:53)
[2017-08-31] MEDS ORDERED: Lidocaine 1% PF 5 ML VIAL ONE (15:53)
[2017-08-31] MEDS ORDERED: Dexamethasone 20 MG/5 ML VIAL ONE (15:53)
[2017-08-31] MEDS ORDERED: Succinylcholine Chloride 20 MG/ML 10 ml SYRINGE FS ONE (15:53)
[2017-08-31] MEDS ORDERED: Propofol 200 MG/20 ML VIAL ONE (15:53)
[2017-08-31] MEDS: Propylthiouracil 50 MG TAB PO SCH (21:37)
[2017-09-01] MEDS: HYDROcodone/Acetaminophen 5/325 mg Tablet PO PRN ×5 (03:02→22:10)
[2017-09-01] MEDS: Calcitriol 0.25 MCG CAP PO SCH (08:50)
[2017-09-01] MEDS: Propylthiouracil 50 MG TAB PO SCH ×2 (08:52→20:04)
[2017-09-01] MEDS: Calcium Carbonate 500 MG TAB PO SCH ×3 (08:52→20:04)
[2017-09-01] MEDS: Sodium Chloride 0.45% 1,000 ML IV SCH ×2 (10:08→19:12)
[2017-09-01] MEDS ORDERED: Calcium Gluconate 9.2 MEQ in Sodium Chloride 0.9% 100 ML IVPB SCH ×2 (14:30→18:00)
--- NOTE | 2017-09-01 17:30 | OP ---
PREOPERATIVE DIAGNOSES: 1. Thyroid mass. 2. Hyperthyroidism. POSTOPERATIVE DIAGNOSES: 1. Thyroid mass. 2. Hyperthyroidism. PROCEDURE PERFORMED: Total thyroidectomy with intraoperative laryngeal nerve monitor. SURGEON: Germán Stein M.D. ESTIMATED BLOOD LOSS: 20 mL COMPLICATIONS: None. ANESTHESIA: GETA with laryngeal nerve monitor. DESCRIPTION OF PROCEDURE: The patient was taken to the operating room and placed supine on the table . General endotracheal anesthesia was obtained by the Anesthesia staff. The laryngeal monitor was c onfirmed to be between the vocal cords with direct visualization, a shoulder roll was placed and then the tube was secured to the midline of the upper lip. Following this, the patient was prepped and d raped in a standard surgical fashion. A 1% lidocaine with 1:100,000 epinephrine was injected into th e area overlying the thyroid mass. The incision was made using a 15 blade through the skin and subcu taneous tissues and the platysmal layer. Subplatysmal flaps were elevated superiorly to the level of the thyroid notch and inferiorly to the thyroid notch. Following this, the strap muscles were ident ified and in the midline where a large thyroid mass encompassing the entire thyroid was enc ountered, staying immediately adjacent to the capsule of the thyroid. Dissection was carried down th e capsule and the gland was retracted laterally. The superior pole vessels were suture ligated immed iately adjacent to the thyroid gland bilaterally. Following this, the recurrent laryngeal nerves wer e identified bilaterally run in the tracheoesophageal groove, there were protected as the inferior th yroid artery was suture ligated. The superior and inferior parathyroid glands were identified and we re from this thyroid tissue. The decision to confirm from a subtotal thyroidectomy to a to adalberto thyroidectomy was made when realized that the entire gland was enlarged. Also, the residual port ions of the gland that would have been left had multiple nodules located within them. They were not identified on previous ultrasound. Following this, the gland was freed from its attachments to the t rachea and Ugarte's ligaments were suture ligated. The gland was then removed from the body in its en tirety. The wound was irrigated. Hemostasis was controlled. A small piece of Surgicel was placed o dudley the recurrent laryngeal nerve as it into the cricothyroid joint bilaterally. A DERRELL drain was plac ed and the wound was closed using Monocryl stitches and Dermabond for the skin. The patient tolerate d the procedure well.
[2017-09-01] MEDS ORDERED: Calcium Gluconate 9.2 MEQ in Sodium Chloride 0.9% 100 ML IVPB PRN (17:35)
[2017-09-02] MEDS: HYDROcodone/Acetaminophen 5/325 mg Tablet PO PRN ×4 (02:21→13:38)
[2017-09-02] MEDS: Sodium Chloride 0.45% 1,000 ML IV SCH ×2 (03:00→09:40)
[2017-09-02] MEDS: Propylthiouracil 50 MG TAB PO SCH (09:32)
[2017-09-02] MEDS: Calcitriol 0.25 MCG CAP PO SCH (09:32)
[2017-09-02] MEDS: Calcium Carbonate 500 MG TAB PO SCH ×2 (09:32→15:06)
[2017-09-02] MEDS ORDERED: CALCIUM GLUCONATE IVPB SCH ×2 (10:00→13:00)
[2017-09-02] MEDS ORDERED: SODIUM CHLORIDE 0.9% IVPB SCH ×2 (10:00→13:00)
[2017-09-02] MEDS ORDERED: MAGNESIUM SULFATE IVPB SCH ×2 (10:00→13:00)
[2017-09-02 12:13] VITALS: BP 129/80; TEMP 98.8
== END 2017-09-02 15:50 | disposition home or self-care (01) | DRG 627 ==
LOC: SDC 08:20 → OBSVTOIN 13:07 → SURG A 13:07
PROVIDERS: ADMIT Otolaryngology Plastic Surgery within the Head & Neck; ATTEND Otolaryngology Plastic Surgery within the Head & Neck
PROC: 0GTK0ZZ Resection of Thyroid Gland, Open Approach (ICD-10-PCS; principal; 2017-08-31)
DX: E07.9 Disorder of thyroid, unspecified (principal); E03.9 Hypothyroidism, unspecified; I10 Essential (primary) hypertension; E07.89 Other specified disorders of thyroid
CPT/HCPCS: 36415; 82310; 84703; 85014; 88307; 93005; 93010; 94760; 96374; A4216; J0131; J0610; J1100; J1170; J2001; J2250; J2405; J2550; J2704; J3010; J3475; J7050

== ENCOUNTER 2025-03-30 07:23 | Emergency (ER) | payer BC ==
[2025-03-30] MEDS ORDERED: Dexamethasone 10 MG/ML VIAL ONE (07:51)
== END 2025-03-30 08:02 | disposition home or self-care (01) ==
LOC: ERS 07:23
DX: S39.012A Strain of muscle, fascia and tendon of lower back, initial encounter (principal); M62.838 Other muscle spasm; E03.9 Hypothyroidism, unspecified; F17.290 Nicotine dependence, other tobacco product, uncomplicated; Z79.890 Hormone replacement therapy; X50.0XXA Overexertion from strenuous movement or load, initial encounter; Y92.009 Unspecified place in unspecified non-institutional (private) residence as the place of occurrence of the external cause
CPT/HCPCS: 96372; 99282; J1100